=== PATIENT | male | born 1990 | race Caucasian/White ===

== ENCOUNTER 2020-01-23 19:51 | Emergency (ER) | payer SELFPAY ==
[~2020-01-23] VITALS: Ht 180.3 cm; Wt 126.3 kg
[~2020-01-23 19:51] MED LIST: AMOXICILLIN500 MG PO; CIPROFLOXACN500 MG PO; DRYSOL20 % EX; ERYTHROMYCIN BAS1 GM OD; HYDRALAZINE10 MG OR; HYDROXYZ HCL10 MG OR; LORTAB 10-325 M1 TAB PO; LORTAB 5 OR; LORTAB5 PO; MUCINEX DM1 TA1 PO; NO CURRENT MEDS; VISTARIL50 MG OR; ZITHROMAX250 MG PO; ZOFRAN ODT8 MG SL; ZOLOFT100 MG OR
[2020-01-23] MEDS ORDERED: XANAX0.5 MG PO (22:09)
[2020-01-23 23:06] VITALS: BP 124/65
== END 2020-01-23 22:54 | disposition home or self-care (01) | DRG 880 ==
LOC: ED 19:51
DX: F41.9 Anxiety disorder, unspecified (principal); F17.210 Nicotine dependence, cigarettes, uncomplicated

== ENCOUNTER 2020-01-25 05:33 | Emergency (ER) | payer SELFPAY ==
[~2020-01-25] VITALS: Ht 180.3 cm; Wt 127.0 kg
[~2020-01-25 05:33] MED LIST changes: +XANAX0.5 MG PO
[2020-01-25 06:42] LABS: URINE BILIRUBIN - DIPSTICK NEGATIVE (NEGATIVE); URINE BLOOD DIPSTICK TRACE-INTACT (NEGATIVE); URINE COLOR YELLOW; URINE GLUCOSE - DIPSTICK NEGATIVE (NEGATIVE); URINE KETONE NEGATIVE (NEGATIVE); URINE LEUK ESTERASE NEGATIVE (NEGATIVE); URINE NITRITE - DIPSTICK NEGATIVE (Negative); URINE PROTEIN - DIPSTICK 30 mg/dL (NEG-TRACE); URINE UROBILINOGEN - DIPSTICK 0.2 E.U./dL (0.2)
[2020-01-25 06:45] LABS: HEMATOCRIT 47.4 % (39.0-50.0); HEMOGLOBIN 15.5 g/dl (14.0-18.0); IMMATURE GRANULOCYTES 0.2 % (0.0-5.0); MEAN CELL VOLUME 88.1 fL CALC (80.0-100.0); MEAN CORPUSCULAR HGB 28.8 pG CALC (26.0-32.0); MEAN CORPUSCULAR HGB CONC 32.7 g/dL CAL (32.0-36.0); NEUT# 5.32 thou/uL (1.82-7.42); RED BLOOD COUNT 5.38 mill/uL (4.70-6.10); RED CELL DISTRI WIDTH 12.7 % (11.5-15.5)
[2020-01-25 06:52] LABS: URINE BACTERIA FEW hpf; URINE EPITHELIAL CELLS FEW EPI/hpf (0-FEW); URINE MUCUS MODERATE hpf (NONE-FEW)
[2020-01-25 06:56] LABS: ALBUMIN 4.2 g/dL (3.2-5.0); ALKALINE PHOSPHATASE 65 u/l (38-126); ANION GAP 14 (6-22 (CALC)); BILIRUBIN, TOTAL 0.5 mg/dL (0.0-1.4); BUN 13 mg/dL (9-20); BUN/CREATININE RATIO 13 (12-20 (CALC)); CARBON DIOXIDE 20 mmol/l (22-30); CHLORIDE 109 mmol/l (95-108); GFR > 60 ML/MIN (>=60 (CALC)); GFR FOR AFR.AMER. > 60 ML/MIN (>=60 (CALC)); POTASSIUM 3.6 mmol/l (3.5-5.1); SGOT/AST 30 u/l (17-59); SODIUM 140 mmol/l (137-146); TOTAL PROTEIN 7.2 g/dL (6.3-8.2)
[2020-01-25] MEDS ORDERED: TORADOL PO (07:16)
[2020-01-25] MEDS ORDERED: TAMSULOSIN0.4 MG PO (08:10)
[2020-01-25] MEDS ORDERED: LORTAB 1010 MG PO (08:10)
[2020-01-25] MEDS ORDERED: KEFLEX500 M1 PO (08:10)
[2020-01-25 08:25] VITALS: BP 113/61
== END 2020-01-25 08:25 | disposition home or self-care (01) | DRG 694 ==
LOC: ED 05:33
PROVIDERS: Emergency Medicine
DX: N20.0 Calculus of kidney (principal); F41.9 Anxiety disorder, unspecified; F17.210 Nicotine dependence, cigarettes, uncomplicated; Z87.442 Personal history of urinary calculi